=== PATIENT | female | born 1945 | race Caucasian/White ===

== ENCOUNTER 2017-09-18 07:57 | Emergency (ER) | payer MEDICARE ==
--- NOTE | 2017-09-18 09:35 | UC ---
Head Injury HPI - HPI Summary HPI Summary: 71 yo female slipped on ice and hit the back of her head no neck pain no LOC no confusion no n/c no gait problems no trouble focusing headache 1-210 - History Of Current Complaint Chief Complaint: UCHeadInjury Stated Complaint: FELL HEAD INJURY Time Seen by Provider: 09/18/17 08:58 Hx Obtained From: Patient Onset/Duration: Sudden Onset Severity Currently: Mild Severity Initially: Moderate Pain Intensity: 2 Pain Scale Used: 0-10 Numeric Aggravating Factor(s): Nothing Alleviating Factor(s): Nothing Associated Signs And Symptoms: Positive: Negative - Allergies/Home Medications Allergies/Adverse Reactions: Allergies Allergy/AdvReac Type Severity Reaction Status Date / Time Sulfa Antibiotics Allergy Rash Verified 09/18/17 08:19 Home Medications: Home Medications NK [No Home Medications Reported] 09/18/17 [History Confirmed 09/18/17] PMH/Surg Hx/FS Hx/Imm Hx Previously Healthy: Yes - Surgical History Surgical History: Yes Surgery Procedure, Year, and Place: cataract surgery 2014 - Family History Known Family History: Positive: Hypertension - Social History Alcohol Use: None Substance Use Type: None Smoking Status (MU): Never Smoked Tobacco Review of Systems Constitutional: Negative Skin: Negative Eyes: Negative ENT: Negative Respiratory: Negative Cardiovascular: Negative Gastrointestinal: Negative Genitourinary: Negative Motor: Negative Neurovascular: Negative Musculoskeletal: Negative Neurological: Headache - not requiring any analgesic Psychological: Negative Is Patient Immunocompromised?: No All Other Systems Reviewed And Are Negative: Yes Physical Exam Triage Information Reviewed: Yes Appearance: No Pain Distress, Well-Nourished, Ill-Appearing Vital Signs: Initial Vital Signs Temp 97.9 F 09/18/17 08:11 Pulse 69 09/18/17 08:11 Resp 18 09/18/17 08:11 BP 152/97 09/18/17 08:11 Pulse Ox 100 09/18/17 08:11 Vital Signs Reviewed: Yes Eyes: Positive: Conjunctiva Clear Neck: Positive: Supple, Nontender Respiratory: Positive: Lungs clear, Normal breath sounds, No respiratory distress, No accessory muscle use Cardiovascular: Positive: RRR, No Murmur Musculoskeletal: Positive: ROM Intact, No Edema Neurological Exam: Normal Neurological: Positive: Alert, Other: - GCS 15/15, normal gait, normal recall, normal reflexes Psychological Exam: Normal Skin Exam: Normal Skin: Positive: Other - no scalp hematoma Head Injury Course/Dx - Differential Dx/Diagnosis Provider Diagnoses: head injury Discharge - Discharge Plan Condition: Stable Disposition: HOME Patient Education Materials: Head Injury (ED) Referrals: No Primary Care Phys,NOPCP [Primary Care Provider] - Additional Instructions: recheck for new symptoms or if you develop a worsening headache
== END 2017-09-18 09:35 | disposition home or self-care (01) ==
LOC: UCEAST 07:57
DX: S09.90XA Unspecified injury of head, initial encounter (principal); W01.0XXA Fall on same level from slipping, tripping and stumbling without subsequent striking against object, initial encounter; Y92.9 Unspecified place or not applicable; Z88.2 Allergy status to sulfonamides
CPT/HCPCS: 36415; 86803; 99201; G0463

== ENCOUNTER 2018-05-07 14:01 | Emergency (ER) | payer MEDICARE ==
--- NOTE | 2018-05-07 14:33 | ED ---
Bite Injury/Animal - HPI Summary HPI Summary: Patient is a 72 y/o F w/ c/o rabies. She was scratched by a feral cat three weeks ago. The scratch healed since then. Patient reports that she went through rabies vaccine in 2010. She states that a rabid bat was found in her area recently, and she is concerned about exposure to rabies. On triage, pain is denied and nothing is noted to aggravate/alleviate Sx. Home medications and allergies reviewed. - History of Current Complaint Chief Complaint: EDAnimalBite Stated Complaint: POSS EXPOSURE Time Seen by Provider: 05/07/18 14:17 Hx Obtained From: Patient Onset of Injury: Happened days ago - rabid bat found, Happened weeks ago - feral cat scratch Type of Bite: Animal - scratch from feral cat Severity Currently: None Pain Intensity: 0 Pain Scale Used: 0-10 Numeric - 0/10 Character: Abrasion/Laceration - scratch which has since healed Aggravating Factor(s): Nothing Alleviating Factor(s): Nothing - Allergies/Home Medications Allergies/Adverse Reactions: Allergies Allergy/AdvReac Type Severity Reaction Status Date / Time MS Sulfa Antibiotics Allergy Rash Verified 09/18/17 08:19 [Sulfa Antibiotics] PMH/Surg Hx/FS Hx/Imm Hx Sensory History: Denies: Hx Legally Blind, Hx Deafness Opthamlomology History: Denies: Hx Legally Blind EENT History: Denies: Hx Deafness - Surgical History Surgery Procedure, Year, and Place: cataract surgery 2014 Infectious Disease History: No Infectious Disease History: Denies: Traveled Outside the [place] in Last 30 Days - Family History Known Family History: Positive: Hypertension - Social History Alcohol Use: None Substance Use Type: Reports: None Smoking Status (MU): Never Smoked Tobacco Review of Systems Positive: Other - rabid bat found in her area . Negative: Fever - on vitals, temp is 97.8 F Positive: Other - feral cat scratch All Other Systems Reviewed And Are Negative: Yes Physical Exam - Summary Physical Exam Summary: Appearance: Well appearing, no pain distress Skin: warm, dry, reflects adequate perfusion Head/face: normal Eyes: EOMI, SHERICE ENT: normal Neck: supple, non-tender Respiratory: CTA, breath sounds present Cardiovascular: RRR, pulses symmetrical Abdomen: non-tender, soft Bowel Sounds: present Musculoskeletal: normal, strength/ROM intact Neuro: normal, sensory motor intact, A&Ox3 Triage Information Reviewed: Yes Vital Signs On Initial Exam: Initial Vitals Temp Pulse Resp BP Pulse Ox 97.8 F 80 16 154/64 98 05/07/18 14:05 05/07/18 14:05 05/07/18 14:05 05/07/18 14:05 05/07/18 14:05 Vital Signs Reviewed: Yes Diagnostics - Vital Signs Vital Signs Temp Pulse Resp BP Pulse Ox 05/07/18 14:05 97.8 F 80 16 154/64 98 - Laboratory Lab Statement: Any lab studies that have been ordered have been reviewed, and results considered in the medical decision making process. Re-Evaluation - Re-Evaluation First Eval Re-Evaluation Time: 14:25 Comment: Discussed plan of care with patient; patient will be given a rabies tighter and she will be discharged to home. Tests will be sent to lab and results will come in several days. She is agreeable with this plan. Bite Injury Course/Dx - Course Course Of Treatment: Patient with no recent exposure however has a feral cat and was scratch bite recently. She has previously been vaccinated for rabies. This is likely all she will ever need. It tight or was obtained this will return in several days. Follow-up primary care physician. - Diagnoses Provider Diagnosis: Animal scratch Discharge - Sign-Out/Discharge Documenting (check all that apply): Patient Departure - discharge - Discharge Plan Condition: Improved Disposition: HOME Patient Education Materials: Rabies (ED) Referrals: [facility] [Outside] [facility] [Outside] Additional Instructions: Your test gets sent out to a lab for testing. This will take several days to result. Return if worse or other concerns. - Billing Disposition and Condition Condition: IMPROVED Disposition: Home - Attestation Statements Document Initiated by Scribe: Yes Documenting Scribe: Stanislaw Wtakins Provider For Whom Cait is Documenting (Include Credential): Hiram Pearl MD Scribe Attestation: Stanislaw Reynolds, scribed for Hiram Pearl MD on 05/07/18 at 1735. Scribe Documentation Reviewed: Yes Provider Attestation: The documentation as recorded by the scribeStanislaw accurately reflects the service I personally performed and the decisions made by me, Hiram Pearl MD
[2018-05-07 15:24] VITALS: BP 148/66
== END 2018-05-07 15:23 | disposition home or self-care (01) ==
LOC: ED 14:01
DX: Z20.3 Contact with and (suspected) exposure to rabies (principal); Z88.2 Allergy status to sulfonamides
CPT/HCPCS: 99282

== ENCOUNTER 2018-05-09 20:30 | Emergency (ER) | payer MEDICARE ==
[2018-05-09 21:00] VITALS: BP 138/71
--- NOTE | 2018-05-09 21:16 | UC ---
Skin Complaint HPI - HPI Summary HPI Summary: The patient is a 72 y/o F presenting to [facility] with a chief complaint of a tick buried in her skin on the left upper back onset today. She noticed that her back was itchy today, but she isn't sure when she was bit. There is no pain associated. She was unable to remove the tick herself. She denies fevers, chills , and rash. She has had Lyme disease before. - History of Current Complaint Chief Complaint: UCSkin Time Seen by Provider: 05/09/18 21:04 Stated Complaint: TICK BITE Hx Obtained From: Patient Onset/Duration: Sudden Onset, Lasting Hours - today, Still Present Skin Exposure Onset/Duration: Hours Ago - today Onset Severity: Mild Current Severity: Mild Pain Intensity: 0 Pain Scale Used: 0-10 Numeric Location: Other - upper left back Aggravating Factor(s): Nothing Alleviating Factor(s): Nothing Associated Signs & Symptoms: Negative: Fever, Chills, Rash - Allergy/Home Medications Allergies/Adverse Reactions: Allergies Allergy/AdvReac Type Severity Reaction Status Date / Time Sulfa (Sulfonamide Allergy Rash Verified 05/09/18 20:49 Antibiotics) Review of Systems Constitutional: Negative, Other - NEGATIVE: fever, chill Skin: Other - POSITIVE: tick in skin on left back with itching at site of bite; NEGATIVE: rash Eyes: Negative ENT: Negative Respiratory: Negative Cardiovascular: Negative Gastrointestinal: Negative Genitourinary: Negative Motor: Negative Neurovascular: Negative Musculoskeletal: Negative Neurological: Negative Psychological: Negative Is Patient Immunocompromised?: No All Other Systems Reviewed And Are Negative: Yes PMH/Surg Hx/FS Hx/Imm Hx - Additional Past Medical History Additional PMH: Lyme disease Previously Healthy: Yes Endocrine History: Other Other Endocrine History: negative Cardiovascular History: Other Other Cardiovascular History: NEGATIVE: HTN Respiratory History: Other Other Respiratory History: TB Other GI/ History: negative Other Neurological History: negative Other Psychological History: negative Other Cancer History: negative - Surgical History Surgical History: Yes Surgery Procedure, Year, and Place: cataract surgery 2014 - Family History Known Family History: Positive: Hypertension - Social History Alcohol Use: None Substance Use Type: None Smoking Status (MU): Never Smoked Tobacco Physical Exam - Summary Physical Exam Summary: Appearance: Well-Appearing, No Pain Distress, Well-Nourished Eyes: conjunctiva clear, no discharge ENT: Hearing grossly normal, no muffled/hoarse voice. Neck: Normal, Supple Respiratory/Lung Sounds: Lungs clear, Normal breath sounds, No respiratory distress, No accessory muscle use Cardiovascular: RRR, No murmur Abdomen: Nontender, Soft, no guarding, not distended Bowel Sounds: Present Musculoskeletal: Normal Neurological: Alert, muscle tone normal Psychiatric:Normal, age appropriate behavior Skin: Normal, Warm, Dry, Normal color Tick is noted on the left side in mid back region with surrounding erythema Triage Information Reviewed: Yes Vital Signs: Initial Vital Signs Temp 97.8 F 05/09/18 20:48 Pulse 69 05/09/18 20:48 Resp 18 05/09/18 20:48 BP 138/71 05/09/18 20:48 Pulse Ox 99 05/09/18 20:48 Vital Signs Reviewed: Yes Course/Dx - Course Course Of Treatment: During the visit today, we removed the tick with a tweezer. She was given 1 dose of doxycycline 200mg as the tick was stuck less than 48 hours, may be just 1 day . We discussed the findings and further plan and she will follow up with her PCP. Patient expressed understanding . - Diagnoses Provider Diagnoses: Tick exposure. Tick bite Discharge - Sign-Out/Discharge Documenting (check all that apply): Patient Departure - Patient will be discharged home. All imaging exams completed and their final reports reviewed: No Studies - Discharge Plan Condition: Stable Disposition: HOME Patient Education Materials: Lyme Disease (ED), Tick Bite (ED) Referrals: [facility]ERR[facility] [Outside] No Primary Care Phys,NOPCP [Primary Care Provider] - Additional Instructions: Follow up with your primary care doctor in 1 week. Patients blood pressure slightly high in Urgent care today , plan follow up with PCP for better control Return to Urgent care / ER if symptoms get worse. - Billing Disposition and Condition Condition: STABLE Disposition: Home - Attestation Statements Document Initiated by Jeanibe: Yes Documenting Scribe: Debora Weaver Provider For Whom Cait is Documenting (Include Credential): Dr. Jose R Matthews MD Scribe Attestation: Debora Reynolds scribed for Dr. Jose R Matthews MD on 05/10/18 at 0030. Scribe Documentation Reviewed: Yes Provider Attestation: The documentation as recorded by the Debora chong accurately reflects the service I personally performed and the decisions made by me, Dr. Jose R Matthews MD
[2018-05-09] MEDS ORDERED: DOXYcycline CAP(*) 100 MG PO ONE (21:20)
== END 2018-05-09 22:17 | disposition home or self-care (01) ==
LOC: UCEAST 20:30
DX: S20.462A Insect bite (nonvenomous) of left back wall of thorax, initial encounter (principal); W57.XXXA Bitten or stung by nonvenomous insect and other nonvenomous arthropods, initial encounter; Y93.9 Activity, unspecified; Y92.9 Unspecified place or not applicable; Z88.2 Allergy status to sulfonamides
CPT/HCPCS: 99212; A9270-GY; G0463